=== PATIENT | male | born 1935 | race Caucasian/White ===

== ENCOUNTER 2017-03-05 00:57 | Day surgery (SDC) | payer MEDICARE ==
[2017-03-05] VITALS (15 sets, daily range): BP systolic 112–164; BP diastolic 59–84; PULSE 53–69; RESP 10–18; O2SAT 95–100
[~2017-03-05] VITALS: Ht 182.9 cm; Wt 78.6 kg
[~2017-03-05 00:57] MED LIST: ASPI-973 PO; CETI10CA PO; CLOP75TA3 PO; GUAI400T57 PO; HYDR25TA4 PO; IBUP200C PO; KLO5T PO; LIP40 PO; METO50TA3 PO; MULT1CAP33 PO; OMEP20CA11 PO; PHEN10TA32 PO
[2017-03-05 08:46] LABS: INR 1.03 ratio
--- NOTE | 2017-03-05 08:51 | NUR ---
Patient admitted for planned PCI with Dr. Villanueva. He is alert, oriented, pleasant, accompanied by his and sister.
[2017-03-05] MEDS ORDERED: NITR1PAT64 TRANSDERM (09:01)
[2017-03-05] MEDS ORDERED: Heparin 1,000 Units/500 mL NS Premix IV ONE (10:55)
[2017-03-05] MEDS ORDERED: Nitroglycerin 50,000 mcg/250 mL D5W Premix IV ONE (10:56)
[2017-03-05] MEDS ORDERED: Heparin 5,000 Units/500 mL NS Premix IV ONE (10:56)
[2017-03-05] MEDS ORDERED: Heparin 1,000 Unit/mL 10 mL Inj ONE (10:56)
[2017-03-05] MEDS ORDERED: Hydrocortisone 50 mg/mL 2 mL Inj IV ONE (11:00)
[2017-03-05] MEDS ORDERED: fentaNYL-PF 50 mCg/mL 2 mL Inj ONE ×3 (11:26→12:11)
[2017-03-05] MEDS ORDERED: Atropine 1 mg/10 mL (Code) Syringe ONE (12:05)
[2017-03-05] MEDS ORDERED: Atropine 1 mg/10 mL (Code) Syringe IVPUSH PRN (12:50)
[2017-03-05] MEDS ORDERED: Ondansetron 2 mg/mL 2 mL Inj IVPUSH PRN (12:50)
[2017-03-05] MEDS ORDERED: Sodium Chloride LOK Flush 10 mL Syringe IVFLUSH PRN (12:50)
[2017-03-05] MEDS ORDERED: 0.9% Sodium Chloride 400 ML (4 HRS) IV ONE (12:50)
[2017-03-05] MEDS ORDERED: 0.9% Sodium Chloride 250 ML BOLUS IV PRN (12:50)
--- NOTE | 2017-03-05 16:07 | NUR ---
Patient off bedrest at 14:45, ambulated to bathroom and back to bed.Bruising at right groin unchanged, site remains soft. no c/o chest pain, at bedside.sinus rhythm on monitor.
[2017-03-05] MEDS ORDERED: guaiFENesin 20 mg/mL 10 mL Syrup PO PRN (18:20)
--- NOTE | 2017-03-05 19:23 | NUR ---
Admit Pt arrived from [facility] with by his side. A&O X3. Answers questions appropriately. Able to make needs known. R groin has scant serosanguinous drainage with mild hematoma. 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 Area is soft, non-tender. Sinus everardo to sinus rhythm 50's to 60's. No c/o pain or discomfort. Denies chest pain. Walks around the room independently. Good appetite. Voiding normally.
[2017-03-05] MEDS ORDERED: Senna-Docusate 8.6-50 mg Tablet PO PRN (22:10)
[2017-03-06 03:30] VITALS: BP 134/71; PULSE 68; RESP 18; O2SAT 95
--- NOTE | 2017-03-06 05:27 | NUR ---
Post heart Cath Pt is up ambulating. Tolerating activities well. Right groin site without apparent complications. VSS. Pt anticipating D/C to home if appropriate. Spouse at the bedside providing support and comfort. No overt complications noted.
[2017-03-06 05:41] VITALS: PULSE 60
[2017-03-06] MEDS ORDERED: Pantoprazole 20 mg ER24 Tablet PO SCH (06:30)
[2017-03-06 06:35] VITALS: BP 146/49; PULSE 68; RESP 18; O2SAT 97
--- NOTE | 2017-03-06 07:16 | NUR ---
Discomfort Pt C/O indigestion symptoms. Rated very mild 2/10. VSS. 12 leads EKG shows no acute changes. AM protonic given along with Zofran. Pt stated symptoms subsided. No further symptoms report.
[2017-03-06 08:00] VITALS: PULSE 73
[2017-03-06 08:40] VITALS: BP 158/80; PULSE 72; RESP 20; O2SAT 95
--- NOTE | 2017-03-06 14:26 | NUR ---
Discharge Pt discharged to home, with transportation by his . Pt's IV dc'd intact, telemetry was removed and tech notified. Pt's discharge instructions, follow up appointments and new medications were reviewed. All questions were answered and pt voiced understanding. Pt's belongings were gathered for transport with pt. Pt was escorted off unit by RN.
[2017-03-07] MEDS ORDERED: DOCU240C41 PO (10:49)
[2017-03-07] MEDS ORDERED: ACET-171 PO (10:49)
--- NOTE | 2017-03-07 18:28 | DI95 ---
[address] [address] INTERVENTIONAL CARDIAC CATHETERIZATION PATIENT: RAMO NUÑEZ : 1935 MR#: [id number] ADMIT: 03/05/2017 JOB ID: [id number] PROCEDURE: Percutaneous intervention on the left anterior descending and the circumflex. INDICATION: Abnormal stress test. Chest pain. HISTORICAL DETAILS: This gentleman underwent angiography on the . He had three-vessel disease. We discussed his treatment options, namely bypass and multi-vessel intervention. He chose multi- vessel intervention. He was brought back for an intervention today. PROCEDURAL DETAILS: These are well enumerated in the procedure log to which the reader and the coders are referred. Briefly, a Voda 3.0 catheter was used and a Runthrough wire was used to cross the lesion in the LAD. An additional Classification Analyst 50 wire was placed in the first diagonal which had proximal and ostial disease. Both these were pre-dilated and good results were obtained in the diagonal following balloon angioplasty. The LAD was then stented. The mid LAD was 1st stented with a 2.5 x 18 mm Resolute drug-coated stent delivered at high pressures. Proximal to that a 2.75 x 18 mm stent was deployed in an overlapping manner and following that, high-pressure inflations were then performed. Final angiographic results in the LAD were excellent with no side branch compromise and a ELISA-3 flow in the diagonal was maintained. We then turned our attention to the circumflex. The distal circumflex had an 80% lesion. This was treated with a 2.75 x 14 mm Resolute drug-coated stent. This was delivered at high pressures with excellent angiographic results. We then turned our attention to the diffusely diseased 1st obtuse marginal branch. This was pre-dilated and then stented with a 2.25 x 22 mm Resolute stent. Final angiographic results in this branch were also excellent. In summary, successful two-vessel intervention. This gentleman has residual disease in his RCA. He has moderate decline in his GFR at this point. About 250 cc of contrast was used. I decided to bring the patient back after few days to intervene on his RCA.
--- NOTE | 2017-03-08 12:33 | PCM.DC.CAR ---
Discharge Summary Date of Service Mar 08, 2017 Date of Hospital Admission 03/05/2017 Date of Discharge: Mar 08, 2017 Providers: Admitting Physician: Primary Care Physician: Norma Gavin MD Attending Physician: Christiano Villanueva MD Diagnosis at Time of Discharge 3 vessel coronary artery disease. Hypertension Problems: Invasive Procedures: A Voda 3.0 catheter was used and a Runthrough wire was used to cross the lesion in the LAD. An additional Production Repairer 50 wire was placed in the first diagonal which had proximal and ostial disease. Both these were pre-dilated and good results were obtained in the diagonal following balloon angioplasty. The LAD was then stented. The mid LAD was 1st stented with a 2.5 x 18 mm Resolute drug-coated stent delivered at high pressures. Proximal to that a 2.75 x 18 mm stent was deployed in an overlapping manner and following that, high-pressure inflations were then performed. Final angiographic results in the LAD were excellent with no side branch compromise and a ELISA-3 flow in the diagonal was maintained. We then turned our attention to the circumflex. The distal circumflex had an 80% lesion. This was treated with a 2.75 x 14 mm Resolute drug-coated stent. This was delivered at high pressures with excellent angiographic results. We then turned our attention to the diffusely diseased 1st obtuse marginal branch. This was pre-dilated and then stented with a 2.25 x 22 mm Resolute stent. Brief History and Physical: The patient was initially seen in the emergency room with complaints of exertional chest pain. He was admitted to the hospital with stable though threatening angina with concerns of worsening. He was loaded with Plavix started on atorvastatin 40 mg daily and also started on Nitropatch. He was discharged home and later followed up on March 03 for cardiac catheterization which revealed three-vessel disease. Options were discussed and Dr. Villanueva brought him back for intervention of his LAD, circumflex and first obtuse marginal branches. Patient reportedly had an uneventful evening last night and is anxious to go home. He denies any chest pain, shortness of breath or orthopnea. He further denies numbness tingling or weakness in his leg. His groin appears benign other than minor to moderate bruising. There is no discharge, no obvious hematoma and he has no significant tenderness or bruit. Pulses are good in his distal extremity. He appears neurovascularly intact. His lungs were clear, heart was regular rate and rhythm without murmur click or rub or gallop. Hospital Course: Patient was treated with percutaneous intervention with drug-eluting stents to his LAD, left circumflex artery and first obtuse marginal branch by Dr. Villanueva. He had an uneventful stay in the hospital. In the normal exam today. I spoke with him and his about discharge instructions and answered their questions. Of note I discussed with Dr. Villanueva the continued need for the nitroglycerin patch. Dr. Villanueva ordered this to be stopped. I called the patient at home after his discharge to let him know. Discharge Medications Aspirin (Aspirin) 81 Mg Tablet 81 MG PO DAILY Atorvastatin (Lipitor) 40 Mg Tablet 40 MG PO DAILY Clonazepam (Clonazepam) 0.5 Mg Tablet 0.5 MG PO HS Clopidogrel Bisulfate (Plavix) 75 Mg Tablet 75 MG PO DAILY Docusate Calcium (Stool Softener) 240 Mg Capsule 240 MG PO DAILY Hydrochlorothiazide (Hydrochlorothiazide) 25 Mg Tablet 25 MG PO DAILY Metoprolol Tartrate (Metoprolol Tartrate) 50 Mg Tablet 50 MG PO BID Multivitamin (Multivitamins) 1 Each Capsule 1 EACH PO DAILY Nitroglycerin 0.4 mg/hr Patch (Nitroglycerin 0.4 mg/hr Patch) 1 Each Patch 0.4 MG TRANSDERM DAILY Omeprazole (Omeprazole) 20 Mg Capsule.dr 20 MG PO DAILY As needed Acetaminophen (Acetaminophen) 500 Mg Tablet 500 MG PO BID PRN PRN For Pain Cetirizine HCl (Zyrtec) 10 Mg Capsule 10 MG PO HS PRN PRN For Congestion Guaifenesin (Guaifenesin) 400 Mg Tablet 400 MG PO DAILY PRN PRN allergies Ibuprofen (Ibuprofen) 200 Mg Capsule 400 MG PO BID PRN PRN For Pain Phenylephrine HCl (Suphedrine PE) 10 Mg Tablet 10 MG PO DAILY PRN PRN allergies Zak Mackay PA-C Mar 08, 2017 12:24
== END 2017-03-06 12:25 | disposition home or self-care (01) ==
LOC: SOUO 00:57 → PCC 17:12 → SOUO 03-06 12:25
PROVIDERS: ATTEND Internal Medicine Cardiovascular Disease
DX: I25.10 Atherosclerotic heart disease of native coronary artery without angina pectoris (principal); I10 Essential (primary) hypertension; R12 Heartburn
CPT/HCPCS: 36415; 80048; 85610; 93005; 99152; 99153; C1725; C1760; C1769; C1874; C1887; C1894; C9600; C9601; J1200; J1644; J2060; J2250; J2405; J3010; J7030; Q9967

== ENCOUNTER 2017-03-07 00:53 | Day surgery (SDC) | payer MEDICARE ==
[2017-03-07] VITALS (18 sets, daily range): BP systolic 118–162; BP diastolic 55–93; PULSE 60–96; RESP 12–20; O2SAT 95–99
[~2017-03-07] VITALS: Ht 182.9 cm; Wt 79.6 kg
[~2017-03-07 00:53] MED LIST changes: +NITR1PAT64 TRANSDERM
[2017-03-07] MEDS ORDERED: 0.9% Sodium Chloride 1,000 ML IV ONE (07:08)
[2017-03-07] MEDS: Sodium Chloride LOK Flush 10 mL Syringe IVFLUSH SCH ×2 (10:20→16:30)
[2017-03-07] MEDS ORDERED: ACET-171 PO (10:49)
[2017-03-07] MEDS ORDERED: DOCU240C41 PO (10:49)
[2017-03-07] MEDS ORDERED: Heparin 1,000 Units/500 mL NS Premix IV ONE (12:03)
[2017-03-07] MEDS ORDERED: Nitroglycerin 50,000 mcg/250 mL D5W Premix IV ONE (12:03)
[2017-03-07] MEDS ORDERED: Heparin 1,000 Unit/mL 10 mL Inj ONE (12:04)
[2017-03-07] MEDS ORDERED: Heparin 5,000 Units/500 mL NS Premix IV ONE (12:04)
--- NOTE | 2017-03-07 12:20 | NUR ---
MELVINA: Arrived to [facility] at 1000, VSS, IV X2 started, NS at 100 ml/hr per order hung and infusing. Taken to laboratory sample carrier in bed at 1215, family at bedside and aware.
[2017-03-07] MEDS ORDERED: fentaNYL-PF 50 mCg/mL 2 mL Inj ONE (12:25)
[2017-03-07] MEDS ORDERED: Atropine 1 mg/10 mL (Code) Syringe ONE (12:51)
--- NOTE | 2017-03-07 14:54 | NUR ---
Post Cath: Pt arrived back from clinical laboratory manager at 1325, no c/o pain, VSS. R groin Perclose, scant amount of bleeding under op site, old bruising and old hematoma noted, but not changed from clinical laboratory manager today and above puncture site from today. R pedal pulse palpable, pt tolerating po intake free of any c/o nausea. at bedside assisting pt with eating and drinking. Addendum: 03/07/17 at 1515 by HOWIE BELTRÁN RN Right groin with increase in firmness after pt used urinal. Light manual pressure applied, MD solis, light femstop applied to R groin. R inguinal hernia noted upon pressure being applied to R groin. Addendum: 03/07/17 at 1522 by HOWIE BELTRÁN RN R pedal pulse palpable.
--- NOTE | 2017-03-07 15:35 | NUR ---
Pt report received from Nicholas ENGLAND, pt awake able to follow directions, at bedside. Vitals stable. Right groin checked, Femstop checked and pedal pulses palpable.
--- NOTE | 2017-03-07 17:30 | NUR ---
Pt able to ambulate to restroom, unable to have bowel movement. Pt return to bed, right groin checked no problem noted. Pt report given to Johanna ENGLAND. Pt left in stable condition.
--- NOTE | 2017-03-07 17:50 | NUR ---
Transfer Pt transferred from [facility] to 2022 with a safe handoff from the [facility] RN. Pt stable & A&Ox3.
[2017-03-07] MEDS ORDERED: Atropine 1 mg/10 mL (Code) Syringe IVPUSH PRN (20:05)
[2017-03-07] MEDS ORDERED: 0.9% Sodium Chloride 400 ML (4 HRS) IV ONE (20:05)
[2017-03-07] MEDS ORDERED: Ondansetron 2 mg/mL 2 mL Inj IVPUSH PRN (20:05)
[2017-03-07] MEDS ORDERED: 0.9% Sodium Chloride 250 ML BOLUS IV PRN (20:05)
[2017-03-07] MEDS ORDERED: Sodium Chloride LOK Flush 10 mL Syringe IVFLUSH PRN (20:05)
[2017-03-08] MEDS: Sodium Chloride LOK Flush 10 mL Syringe IVFLUSH SCH ×2 (00:37→07:37)
[2017-03-08 03:57] VITALS: BP 154/70; PULSE 64; RESP 16; O2SAT 95
[2017-03-08 05:30] VITALS: PULSE 66
[2017-03-08 07:20] VITALS: BP_SYST 78; PULSE 70; RESP 19; O2SAT 95
[2017-03-08 08:00] VITALS: PULSE 88
--- NOTE | 2017-03-08 10:26 | PCM.DIMED ---
Discharge Instructions Date of Service Mar 08, 2017 Dates of Hospitalization 03/07/17 Discharge Diagnosis Discharge Diagnosis 3 vessle CAD Diet Low fat, Low Sodium, Heart Healthy Call your provider Fever or Chills, Shortness of breath, Bleeding, Chest pain, Vomitting, Weakness (unilateral) Patient Instructions Call the office right away if you notice increased swelling, redness, bruising , drainage (blood or pus) annual groin area. Likewise if you notice pain, numbness tingling or weakness down the leg. Avoid lifting more than 10 pounds for 1 week. He may shower but avoid bathing ( soaking in a tub) for one week. Gradually increase activity over the next week as tolerated. He will continue with all meds as prescribed. In particular clopidogrel needs to be taken every day as directed along with her aspirin. This will help decrease the risk of forming clots in your arteries/stents. Provider: Christiano Villanueva MD Follow-up in: 5 weeks Mid-level Provider (F9): Cruz Ruiz PA-C Follow-up with Mid-level in: 1 week Zak Mackay PA-C Mar 08, 2017 10:23
--- NOTE | 2017-03-08 12:21 | NUR ---
Discharge Patient was discharge home in stable condition at 1100 this morning. Patient ambulated in room and hallways before and after breakfast today. He tolerated the activity well and denied having any shortness of breath, discomfort or chest pain. Right groin puncture side remained stable with some bruising and mild tenderness to the touch around puncture side which did not increased since yesterday but actually felt better than yesterday per patients statement. patient and his verbalized understanding of discharge home instructions regarding diet, activity restrictions, puncture side care, home medications, follow up appointments/care and when to seek medical help. IV x2 were removed intact .Patient was taking PO well with adequate urine output. Patient declined to be assisted to his 's car with a wheelchair-he walked to his 's car and was accompanied by his and staff.
--- NOTE | 2017-03-26 12:26 | DI95 ---
[address] [address] INTERVENTIONAL CARDIAC CATHETERIZATION PATIENT: RAMO NUÑEZ : 1935 MR#: [id number] ADMIT: 03/07/2017 JOB ID: [id number] DATE OF SERVICE: 03/07/2017 PROCEDURE: Percutaneous intervention on the right coronary artery. INDICATIONS: This gentleman has three-vessel coronary artery disease. He had stenting performed to his left coronary on the and was brought back today. There was concern about dye-induced renal failure and hence, the procedure was staged. DESCRIPTION OF PROCEDURE: An Amplatz catheter was used to cannulate the right coronary artery. The distal RCA lesion was treated with a 2.5 x 12 Xience drug-coated stent after balloon dilatation. The mid RCA was tackled with a 3.25 x 15 mm Xience drug-coated stent. Final angiographic results in both vessels were excellent. SUMMARY: Successful intervention on the right coronary artery.
== END 2017-03-08 11:04 | disposition home or self-care (01) ==
LOC: SOUO 00:53 → PCC 17:29 → SOUO 03-08 11:04
PROVIDERS: ATTEND Internal Medicine Cardiovascular Disease
DX: I25.10 Atherosclerotic heart disease of native coronary artery without angina pectoris (principal); I10 Essential (primary) hypertension; Z95.5 Presence of coronary angioplasty implant and graft
CPT/HCPCS: 36415; 80048; 93005; 99152; 99153; C1725; C1760; C1769; C1874; C1887; C9600; J1200; J1644; J2060; J2250; J3010; J7030; Q9967